=== PATIENT | male | born 1975 | race Two or more races ===

== ENCOUNTER 2017-09-12 16:47 | Emergency (ER) | payer SELFPAY ==
[~2017-09-12] VITALS: Ht 172.7 cm; Wt 74.8 kg
[~2017-09-12 16:47] MED LIST: IBUPROFEN600 MG ORAL; NEXAFED30 MG ORAL; NORCO 5-325 TA1 EACH ORAL
[2017-09-12] MEDS ORDERED: NKM (17:25)
[2017-09-12] MEDS ORDERED: Ketorolac 30mg Inj IM ONE (17:45)
[2017-09-12] MEDS ORDERED: Acetaminophen 500mg (ES) tab ORAL ONE (18:00)
[2017-09-12] MEDS ORDERED: Methocarbamol 500mg tab ORAL ONE (18:00)
[2017-09-12 18:16] VITALS: BP 130/68
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
[2017-09-12] MEDS ORDERED: IBUPROFEN800 MG ORAL (19:34)
[2017-09-12] MEDS ORDERED: LIDOCAINE700 M1 TP (19:34)
[2017-09-12] MEDS ORDERED: ROBAXIN500 MG PO (19:34)
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
== END 2017-09-12 19:58 | disposition home or self-care (01) ==
LOC: EMR 19:57
DX: M54.2 Cervicalgia (principal); M54.9 Dorsalgia, unspecified; H93.19 Tinnitus, unspecified ear; M25.512 Pain in left shoulder
CPT/HCPCS: 70450; 99284